=== PATIENT | male | born 1935 | race African-American/Black ===

== ENCOUNTER 2024-05-19 17:39 | Inpatient (IN) | payer OTHER ==
[~2024-05-19] VITALS: Ht 172.7 cm; Wt 85.0 kg
[~2024-05-19 17:39] MED LIST: ASPI81CH59 PO; CALC0.5C PO; DICL1GEL26 TOP; FINA5TAB4 PO; TAMS0.4C36 PO
[2024-05-19 18:54] LABS: Basophils # (auto) 0 10 ^3/uL (0-0.2); Basophils % (auto) 0.2 % (0.0-2.0); Eosinophils # (auto) 0.2 10 ^3/uL (0-0.8); Eosinophils % (auto) 1.3 % (0.0-7.0); Hematocrit 38.3 % (41.0-53.0); Hemoglobin 12.9 g/dL (13.5-17.5); Lymphocytes % (auto) 22.8 % (10.0-50.0); Mean Corpuscular Hemoglobin 31.3 pg (28.0-32.0); Mean Corpuscular Hgb Conc. 33.6 g/dL (32.0-36.0); Mean Corpuscular Volume 93.2 fL (80.0-100.0); Monocytes # (auto) 1.1 10 ^3/uL (0-1.3); Monocytes % (auto) 8.2 % (0.0-12.0); Neutrophils # (auto) 8.9 10 ^3/uL (1.6-8.6); Neutrophils % (auto) 67.5 % (37.0-80.0); Red Blood Cells 4.11 10^6/uL (4.5-5.90); Red Cell Distribution Width 14.5 % (11.8-14.3); White Blood Cell 13.1 10^3/uL (4.4-10.8)
[2024-05-19 19:01] LABS: Chloride 105 mmol/L (98-107)
[2024-05-19 19:02] LABS: Anion Gap 6 (5-15); Carbon Dioxide 26 mmol/L (20-30); Potassium 4.1 mmol/L (3.5-5.1); Sodium 137 mmol/L (136-145)
[2024-05-19 19:03] LABS: Calcium 9.8 mg/dL (8.7-10.4)
[2024-05-19 19:08] LABS: BUN/Creatinine Ratio 9.4 (10.0-20.0); Blood Urea Nitrogen 11 mg/dL (9-23); Glucose 86 mg/dL (74-106)
[2024-05-19] MEDS ORDERED: MORPHINE SULFATE INJ 2 MG/ml SYRG IV PRN (21:30)
[2024-05-19] MEDS ORDERED: NITROGLYCERIN 0.4 MG SL TAB SL PRN (21:30)
[2024-05-19] MEDS: ONDANSETRON HCL 4 MG/2 ML VIAL IV ONE (22:46)
[2024-05-19] MEDS: HYDROcodone-ACET 5/325MG TAB PO PRN (22:49)
[2024-05-20] VITALS (9 sets, daily range): BP systolic 114–162; BP diastolic 59–87; PULSE 67–98; RESP 17–19; TEMP 97.7–98.7; O2SAT 0–99
[2024-05-20] MEDS: cefTRIAXone 1GM/50ML D5W 50 ML IV ONE (12:35)
[2024-05-20 14:43] LABS: Urine Bacteria None Seen /hpf (None Seen)
[2024-05-20 14:55] LABS: Urine Blood Negative /uL (Negative); Urine Clarity Clear (Clear); Urine Color Light-Yellow (Yellow); Urine Mucus FEW (None Seen); Urine Protein, UAD Negative (Negative); Urine Specific Gravity 1.018 (1.001-1.035); Urine Urobilinogen Normal (Negative); Urine WBC <1 /hpf (0 - 3)
[2024-05-20] MEDS: ONDANSETRON HCL 4 MG/2 ML VIAL IV PRN (16:14)
[2024-05-20] MEDS: ACETAMINOPHEN 325 MG TAB PO PRN (18:27)
[2024-05-20] MEDS: TAMSULOSIN HYDROCHLORIDE 0.4 MG CAP PO SCH (18:28)
[2024-05-21] VITALS (9 sets, daily range): BP systolic 105–130; BP diastolic 50–69; PULSE 67–84; RESP 18–22; TEMP 98–98.7; O2SAT 0–99
[2024-05-21] MEDS: cefTRIAXone 1GM/50ML D5W 50 ML IV SCH (09:34)
[2024-05-22] VITALS (8 sets, daily range): BP systolic 112–135; BP diastolic 47–76; PULSE 64–80; RESP 16–21; TEMP 98–99.6; O2SAT 0–100
[2024-05-23] VITALS (8 sets, daily range): BP systolic 91–122; BP diastolic 52–59; PULSE 70–84; RESP 17–20; TEMP 97.8–98.2; O2SAT 95–100
[2024-05-23 06:47] LABS: Basophils # (auto) 0 10 ^3/uL (0-0.2); Basophils % (auto) 0.2 % (0.0-2.0); Eosinophils # (auto) 0.2 10 ^3/uL (0-0.8); Eosinophils % (auto) 1.6 % (0.0-7.0); Hematocrit 35.1 % (41.0-53.0); Hemoglobin 12.1 g/dL (13.5-17.5); Lymphocytes # (auto) 2.3 10 ^3/uL (0.4-5.4); Lymphocytes % (auto) 22.2 % (10.0-50.0); Mean Corpuscular Hemoglobin 32.1 pg (28.0-32.0); Mean Corpuscular Hgb Conc. 34.4 g/dL (32.0-36.0); Mean Corpuscular Volume 93.2 fL (80.0-100.0); Monocytes # (auto) 1.1 10 ^3/uL (0-1.3); Monocytes % (auto) 11.1 % (0.0-12.0); Neutrophils # (auto) 6.6 10 ^3/uL (1.6-8.6); Neutrophils % (auto) 64.9 % (37.0-80.0); Red Blood Cells 3.77 10^6/uL (4.5-5.90); Red Cell Distribution Width 14.3 % (11.8-14.3); White Blood Cell 10.2 10^3/uL (4.4-10.8)
[2024-05-23 06:52] LABS: INR 1.09 (0.9-1.15); Partial Thromboplastin Time 27.1 SEC (24.5-34.5); Prothrombin Time 11.5 sec (9.3-11.8)
[2024-05-23 06:59] LABS: Albumin 3.5 g/dL (3.2-4.8); Alkaline Phosphatase 66 U/L (46-116); Anion Gap 8 (5-15); Aspartate Aminotransferase 11 U/L (13-40); BUN/Creatinine Ratio 11.5 (10.0-20.0); Blood Urea Nitrogen 11 mg/dL (9-23); Calcium 9.2 mg/dL (8.7-10.4); Carbon Dioxide 25 mmol/L (20-30); Chloride 102 mmol/L (98-107); Glucose 93 mg/dL (74-106); Sodium 135 mmol/L (136-145)
[2024-05-23 07:00] LABS: Bilirubin, Total 0.7 mg/dL (0.2-1.0); Total Protein 6.6 g/dL (5.7-8.2)
[2024-05-23 07:05] LABS: Alanine Aminotransferase < 9 U/L (7-40)
[2024-05-24] VITALS (11 sets, daily range): BP systolic 99–147; BP diastolic 56–80; PULSE 70–88; RESP 13–18; TEMP 97.4–98.7; O2SAT 94–100
[2024-05-24] MEDS: LIDOCAINE VISCOUS 2% 15ML UD PO ONE (07:30)
[2024-05-24] MEDS: MIDAZOLAM HCL 2MG/2ML 2ml VIAL (1mg/ml) IV ONE (07:30)
[2024-05-24] MEDS: fentaNYL CITRATE 100 MCG/2 ML VL IV ONE (07:30)
[2024-05-24] MEDS: IODIXANOL 320MG/ML 100ML BTL IV ONE ×3 (07:40→09:42)
[2024-05-24] MEDS: HEPARIN IN NS 1000Units/500mL 1,500 ML ONE (07:40)
[2024-05-24] MEDS: VERAPAMIL 2.5MG/ML INJ 2ML VIAL IV ONE (08:03)
[2024-05-24] MEDS: LIDOCAINE 2%HCL (LOCAL ANESTH.) INJ 20ML MDV ONE (08:04)
[2024-05-24] MEDS: fentaNYL CITRATE 100 MCG/2 ML VL ONE (08:36)
[2024-05-24] MEDS: ANGIOMAX 250 MG VIAL IV ONE ×2 (08:36→10:03)
[2024-05-24] MEDS: SODIUM CHL 0.9% 50 ML ONE ×2 (08:36→10:03)
[2024-05-24] MEDS: MIDAZOLAM HCL 2MG/2ML 2ml VIAL (1mg/ml) ONE (08:36)
[2024-05-24] MEDS: HEPARIN SODIUM (PORCINE) 5000 UNITS/ML 1ML VIAL ONE (08:37)
[2024-05-24] MEDS: ONDANSETRON HCL 4 MG/2 ML VIAL ONE (09:47)
[2024-05-24] MEDS: METOCLOPRAMIDE HCL 5MG/ml INJ 2ml VIAL ONE (09:51)
[2024-05-24] MEDS: ASPirin 81 mg TAB ONE (10:35)
[2024-05-24] MEDS: CLOPIDOGREL BISULFATE 75 MG TAB ONE (10:35)
[2024-05-24] MEDS ORDERED: ASPirin 325 MG TAB PO ONE (10:45)
[2024-05-24] MEDS: CLOPIDOGREL BISULFATE 75 MG TAB PO ONE (11:36)
[2024-05-24] MEDS: ASPirin 81 mg TAB PO ONE (11:57)
[2024-05-24] MEDS: SODIUM CHLORIDE 0.9% 1,000 ML IV SCH (12:30)
[2024-05-24] MEDS: ATORVASTATIN 20 MG TAB PO SCH (21:36)
[2024-05-24] MEDS: METOPROLOL TARTRATE 25 MG TAB PO SCH (21:36)
[2024-05-25] VITALS (12 sets, daily range): BP systolic 100–126; BP diastolic 54–70; PULSE 60–91; RESP 12–18; TEMP 97.8–98.8; O2SAT 94–100
[2024-05-25] MEDS: ASPirin 81 mg TAB PO SCH (09:12)
[2024-05-25] MEDS: CLOPIDOGREL BISULFATE 75 MG TAB PO SCH (09:12)
[2024-05-25] MEDS: IODIXANOL 320MG/ML 100ML BTL IV ONE (12:06)
[2024-05-25] MEDS: HEPARIN IN NS 1000Units/500mL 1,500 ML ONE (12:07)
[2024-05-25] MEDS: SODIUM CHL 0.9% 50 ML ONE ×2 (12:09→13:16)
[2024-05-25] MEDS: MIDAZOLAM HCL 2MG/2ML 2ml VIAL (1mg/ml) ONE (12:09)
[2024-05-25] MEDS: ANGIOMAX 250 MG VIAL IV ONE ×2 (12:09→13:16)
[2024-05-25] MEDS: fentaNYL CITRATE 100 MCG/2 ML VL ONE (12:09)
[2024-05-25] MEDS: HEPARIN SODIUM (PORCINE) 5000 UNITS/ML 1ML VIAL ONE (12:19)
[2024-05-25] MEDS: VERAPAMIL 2.5MG/ML INJ 2ML VIAL IV ONE (12:19)
[2024-05-25] MEDS: LIDOCAINE 2%HCL (LOCAL ANESTH.) INJ 20ML MDV ONE (12:19)
[2024-05-25] MEDS: ATROPINE SULF 1 MG/10ml SYR ONE (12:49)
[2024-05-26 01:00] VITALS: BP 96/55; PULSE 87; RESP 16; TEMP 98.6; O2SAT 98
[2024-05-26 06:00] VITALS: BP 97/58; PULSE 78; RESP 16; TEMP 98.5; O2SAT 97
[2024-05-26 08:00] VITALS: PULSE 72
[2024-05-26 08:37] VITALS: BP 99/59; PULSE 72; RESP 16; TEMP 98.5; O2SAT 98
[2024-05-26] MEDS ORDERED: CLOP75TA28 PO (11:25)
[2024-05-26] MEDS ORDERED: LISI20TA56 PO (11:25)
[2024-05-26] MEDS ORDERED: METO25TA5 PO (11:25)
[2024-05-26] MEDS ORDERED: ASPI-628 PO (11:25)
[2024-05-26] MEDS ORDERED: ATOR80TA PO (11:25)
[2024-05-26 13:00] VITALS: BP 111/63; PULSE 84; RESP 20; TEMP 98; O2SAT 99
[2024-05-26 14:30] VITALS: BP 99/59; PULSE 72; TEMP 36.7
== END 2024-05-26 16:15 | disposition home or self-care (01) | DRG 321 ==
LOC: ER 17:39 → EDUNIT# 17:39 → EDBD 17:39 → TELE 21:30 → TELE-WESTW 23:48
PROVIDERS: ADMIT Family Medicine; ATTEND Family Medicine
PROC: 027135Z Dilation of Coronary Artery, Two Arteries with Two Drug-eluting Intraluminal Devices, Percutaneous Approach (ICD-10-PCS; principal; 2024-05-24)
PROC: 4A023N7 Measurement of Cardiac Sampling and Pressure, Left Heart, Percutaneous Approach (ICD-10-PCS; 2024-05-24)
PROC: B2110ZZ Fluoroscopy of Multiple Coronary Arteries using High Osmolar Contrast (ICD-10-PCS; 2024-05-24)
PROC: B2150ZZ Fluoroscopy of Left Heart using High Osmolar Contrast (ICD-10-PCS; 2024-05-24)
PROC: B241ZZ3 Ultrasonography of Multiple Coronary Arteries, Intravascular (ICD-10-PCS; 2024-05-24)
PROC: 03HY32Z Insertion of Monitoring Device into Upper Artery, Percutaneous Approach (ICD-10-PCS; 2024-05-24)
PROC: B24BZZ4 Ultrasonography of Heart with Aorta, Transesophageal (ICD-10-PCS; 2024-05-24)
PROC: 027236Z Dilation of Coronary Artery, Three Arteries with Three Drug-eluting Intraluminal Devices, Percutaneous Approach (ICD-10-PCS; 2024-05-25)
PROC: 03HY32Z Insertion of Monitoring Device into Upper Artery, Percutaneous Approach (ICD-10-PCS; 2024-05-25)
PROC: 4A023N7 Measurement of Cardiac Sampling and Pressure, Left Heart, Percutaneous Approach (ICD-10-PCS; 2024-05-25)
PROC: B2101ZZ Fluoroscopy of Single Coronary Artery using Low Osmolar Contrast (ICD-10-PCS; 2024-05-25)
PROC: B241ZZ3 Ultrasonography of Multiple Coronary Arteries, Intravascular (ICD-10-PCS; 2024-05-25)
DX: I35.0 Nonrheumatic aortic (valve) stenosis (principal); I24.9 Acute ischemic heart disease, unspecified; I25.10 Atherosclerotic heart disease of native coronary artery without angina pectoris; N40.0 Benign prostatic hyperplasia without lower urinary tract symptoms; D72.829 Elevated white blood cell count, unspecified; S00.03XA Contusion of scalp, initial encounter; W18.39XA Other fall on same level, initial encounter; Z90.49 Acquired absence of other specified parts of digestive tract; Z82.49 Family history of ischemic heart disease and other diseases of the circulatory system; Y93.89 Activity, other specified; Y92.89 Other specified places as the place of occurrence of the external cause; Y99.8 Other external cause status
CPT/HCPCS: 36415; 70450; 70551; 71045; 72125; 80048; 80053; 81001; 82962; 84484; 85025; 85610; 85730; 87086; 92928; 92978; 93005; 93306; 93312; 93458; 93886; 99152; 99153; C1874; G0378; J2250; J2405; Q9967